=== PATIENT | male | born 1975 | race Caucasian/White ===

== ENCOUNTER → 2021-10-14 | Outpatient (REF) | LOC: M PLALAB 11:23 | PROVIDERS: ATTEND Internal Medicine | DX: M51.36 Other intervertebral disc degeneration, lumbar region (principal); M48.54XA Collapsed vertebra, not elsewhere classified, thoracic region, initial encounter for fracture; M25.70 Osteophyte, unspecified joint ==

== ENCOUNTER 2023-08-09 11:40 | Day surgery (SDC) | payer OTHER ==
[~2023-08-09] VITALS: Ht 193 cm; Wt 109.3 kg
[~2023-08-09 11:40] MED LIST: LISI20TA33 PO; NS 1,000 ML IV ONE
[2023-08-09] MEDS ORDERED: propofoL 500 MG/50 ML VIAL As Ordered ONE (13:09)
[2023-08-09 13:19] VITALS: TEMP 97.3
[2023-08-09 13:38] VITALS: BP 113/65; O2SAT 97
== END 2023-08-09 13:55 | disposition home or self-care (01) ==
LOC: M OPP 11:40
PROVIDERS: ATTEND Surgery
DX: Z12.11 Encounter for screening for malignant neoplasm of colon (principal); Z80.0 Family history of malignant neoplasm of digestive organs; D12.6 Benign neoplasm of colon, unspecified; Z79.899 Other long term (current) drug therapy